=== PATIENT | female | born 1970 | race Caucasian/White ===

== ENCOUNTER 2016-07-27 20:42 | Emergency (ER) | payer MEDICAID ==
[2016-07-27] MEDS ORDERED: Morphine 2 MG/ML Syringe IM ONE (21:02)
--- NOTE | 2016-07-27 21:02 | EDM.PDOC ---
ED HPI ENT - General Chief Complaint: ENT Problem Stated Complaint: dental pain Time Seen by Provider: 07/27/16 20:51 Source of Information: Reports: Patient, RN, RN notes reviewed History Limitations: Reports: No limitations - History of Present Illness INITIAL COMMENTS - FREE TEXT/NARRATIVE: Patient presents to the emergency room at [facility] with dental pain. The patient states she was seen by her dentist on July 23, 2016 for a cracked tooth. The patient states she had a dental filling completed on that day. According to the patient, the dentist did not feel there was any dental abscess. The patient states over the weekend she had 10/10 pain. The patient made an appointment to see her PCP last Tuesday. The patient states she was started on oral antibiotics and given a prescription for Tylenol No. 3. The patient states the Tylenol No. 3 has not been helping the pain, therefore she did call the clinic again today. The patient states that her PCP was not available and was told to come to the emergency room if the pain got any worse. The patient states she has been taking her antibiotics and pain medicine as directed. The patient states she's also been taking additional ibuprofen. Symptom Onset Date: 07/23/16 Timing/Duration: Reports: Getting worse - Related Data Allergies/ADRs: Allergies Allergy/AdvReac Type Severity Reaction Status Date / Time tramadol HCl [From Ultram] Allergy Intermediate Headache Verified 12/07/15 09:15 cefuroxime axetil Allergy Mild Itching Verified 12/07/15 09:15 [From Ceftin] latex Allergy Mild Hives Verified 12/07/15 09:15 minocycline [Minocycline] Allergy Mild Itching Verified 12/07/15 09:15 Penicillins Allergy Mild Itching Verified 12/07/15 09:15 sulfamethoxazole Allergy Mild Itching Verified 12/07/15 09:15 clindamycin Allergy Unknown Itching Verified 12/07/15 09:15 cephalexin Allergy Itching Verified 12/07/15 09:15 triamcinolone [From Kenalog] Allergy Other Verified 07/27/16 20:59 Home Meds: Home Meds Cetirizine HCl [Zyrtec] 10 mg PO DAILY 06/30/14 [History] Benzonatate [Tessalon Perle] 100 mg PO TID PRN 12/07/15 [History] Cyclobenzaprine [Flexeril] 10 mg PO BID PRN 12/07/15 [History] FLUoxetine [PROzac] 20 mg PO DAILY 12/07/15 [History] Ibuprofen [Advil] 80 mg PO Q6H PRN 12/07/15 [History] Omeprazole 40 mg PO DAILY 12/07/15 [History] SUMAtriptan Succinate [Imitrex] 100 mg PO DAILY PRN 12/07/15 [History] Past Medical History Gastrointestinal History: Reports: [employer] History: Reports: Other (see below) Other OB/BYN History: Uterus removal - Past Surgical History HEENT Surgical History: Reports: Eye surgery, Tonsillectomy Social & Family History - Tobacco Use Smoking Status *Q: Never Smoker - Alcohol Use Days Per Week of Alcohol Use: 0 - Recreational Drug Use Recreational Drug Use: No ED ROS ENT - Review of Systems Review Of Systems: See Below Constitutional: Denies: fever, chills, weakness HEENT: Reports: Dental pain Respiratory: Denies: Shortness of Breath, Cough Cardiovascular: Denies: Chest pain, Palpitations Skin: Reports: no symptoms Neurological: Reports: No Symptoms. Denies: Headache, Numbness ED EXAM, ENT - Physical Exam Exam: See Below Exam Limited By: No limitations General Appearance: alert, no apparent distress Mouth/Throat: Dental pain, Dental tenderness, Dry mucous membrane, Other ( Multiple dental caries) Respiratory/Chest: no respiratory distress, lungs clear, normal breath sounds Cardiovascular: regular rate, rhythm Neurological: alert, oriented Skin: Warm, Dry, Intact, Normal color, No rash Departure - Departure Time of Disposition: 21:01 Disposition: Home, Self-Care 01 Condition: good Clinical Impression: Pain, dental, Dental caries Instructions: Dental Caries Referrals: Dominique Chong NP [Ordering Only Provider] - Forms: ED Department Discharge Additional Instructions: 1. Stay well hydrated and rest 2. Continue same medications as prescribed 3. See your PCP as soon as you can, or your dentist; you may need the tooth extracted - Problem List Review Problem List Initiated/Reviewed/Updated: Yes - Assessment/Plan Plan: The patient will be given 2 mg of IM morphine. I discussed with the patient that she needs to make an appointment to see her PCP, or also try her dentist again. Patient verbalized understanding and agreed with plan of care.
[2016-07-27] MEDS ORDERED: Ondansetron 4 MG Tab.DIS PO ONE (21:09)
[2016-07-27 21:14] VITALS: BP 135/85
== END 2016-07-27 21:30 | disposition home or self-care (01) ==
LOC: VM.ED 20:42
DX: K02.9 Dental caries, unspecified (principal); K08.89 Other specified disorders of teeth and supporting structures; K21.9 Gastro-esophageal reflux disease without esophagitis; Z88.5 Allergy status to narcotic agent; Z88.8 Allergy status to other drugs, medicaments and biological substances; Z88.0 Allergy status to penicillin; Z88.2 Allergy status to sulfonamides; Z79.899 Other long term (current) drug therapy; Z91.040 Latex allergy status; Z88.1 Allergy status to other antibiotic agents; Z98.890 Other specified postprocedural states
CPT/HCPCS: 96372; 99282; A9270; J2270

== ENCOUNTER 2023-03-26 12:21 | Emergency (ER) | payer MEDICAID ==
[2023-03-26] MEDS ORDERED: Sodium Chloride 0.9% 1,000 ML IV SCH (12:30)
[2023-03-26 12:44] LABS: BASOPHILS PERCENT AUTO 0.2 % (0.2-1.2); HEMATOCRIT 37.8 % (33.0-47.0); HEMOGLOBIN 12.8 g/dL (12.0-16.0); IMMATURE GRAN ABSOLUTE AUTO 0.07 x10^3/uL (0.00-0.07); LYMPHOCYTES ABSOLUTE AUTO 0.3 x10^3/uL (1.0-4.8); MEAN CORPUSCULAR HGB CONC 33.9 g/dL (32.0-36.0); MEAN CORPUSCULAR VOLUME 85.7 fL (78.0-93.0); MONOCYTES ABSOLUTE AUTO 0.5 x10^3/uL (0.0-0.8); MONOCYTES PERCENT AUTO 8.9 % (2.0-11.0); NEUTROPHILS ABSOLUTE AUTO 4.4 x10^3/uL (1.8-7.7); NEUTROPHILS PERCENT AUTO 83.3 % (50.0-80.0); PLATELET COUNT,PLT 235 x10^3/uL (130-400); RED BLOOD CELL COUNT 4.41 x10^6/uL (4.00-5.50); WHITE BLOOD CELL COUNT,WBC 5.3 x10^3/uL (4.0-10.0)
[2023-03-26] MEDS: Lactated Ringers 1,000 ML IV ONE (12:45)
[2023-03-26] MEDS: Ondansetron 4 MG/2 ML SDV IVPUSH ONE (12:48)
[2023-03-26 12:49] LABS: LYMPHOCYTES PERCENT AUTO 6.3 % (25.0-50.0)
[2023-03-26 12:57] LABS: A/G RATIO 0.84; ALANINE AMINOTRANSFERASE,ALT 35 U/L (14-59); ALBUMIN 3.7 g/dL (3.4-5.0); ALKALINE PHOSPHATASE 102 U/L (46-116); ASPARTATE AMNIOTRANSFERASE,AST 31 U/L (15-37); BILIRUBIN TOTAL 0.3 mg/dL (0.2-1.0); BLOOD UREA NITROGEN,BUN 11 mg/dL (7-18); C-REACTIVE PROTEIN 0.73 mg/dL (<=0.50); CALCIUM 9.1 mg/dL (8.5-10.1); CARBON DIOXIDE,CO2 25 mmol/L (21-32); CHLORIDE,CL 102 mmol/L (98-107); CREATININE 0.7 mg/dL (0.55-1.02); GLUCOSE RANDOM 110 mg/dL (70-99); PROTEIN TOTAL,TP 8.1 g/dL (6.4-8.2); SODIUM,NA 139 mmol/L (136-145)
[2023-03-26 13:02] LABS: ESTIMATED GFR 103 mL/min (>=60)
[2023-03-26 13:20] LABS: CORONAVIRUS COVID-19 NAA POSITIVE (NEGATIVE); INFLUENZA A NAA NEGATIVE (NEGATIVE); INFLUENZA B NAA NEGATIVE (NEGATIVE); RESPIRATORY SYNCYTIAL VIR NAA NEGATIVE (NEGATIVE)
[2023-03-26] MEDS: Take Home: Ondansetron 4 MG Tab.DIS, 5 Tab Pack PO ONE (13:22)
[2023-03-26] MEDS: Acetaminophen 500 MG Tab PO ONE (15:39)
[2023-03-26 15:51] VITALS: BP 141/78; PULSE 95
== END 2023-03-26 13:30 | disposition home or self-care (01) ==
LOC: VM.ED 12:21
DX: U07.1 COVID-19 (principal); K21.9 Gastro-esophageal reflux disease without esophagitis; Z86.16 Personal history of COVID-19; Z79.899 Other long term (current) drug therapy; Z88.8 Allergy status to other drugs, medicaments and biological substances; Z88.1 Allergy status to other antibiotic agents; Z88.0 Allergy status to penicillin; Z88.2 Allergy status to sulfonamides; Z91.040 Latex allergy status; Z88.5 Allergy status to narcotic agent
CPT/HCPCS: 0241U; 80053; 83735; 85025; 86140; 96361; 96374; 99284; 99284-25; A9270-GY; J2405; J7120; Q0162